=== PATIENT | female | born 1985 | race Caucasian/White ===

== ENCOUNTER 2022-11-23 09:49 | Emergency (ER) | payer OTHER, SELFPAY ==
--- NOTE | ~2022-11-23 | US_ITS ---
Pelvic ultrasound. Clinical History: First trimester , ectopic Technique: Realtime transabdominal and transvaginal scanning of the pelvis was performed. Color flow Doppler and Doppler spectral analysis were performed. Findings: The uterus is anteverted. The endometrial stripe has a thickness of up to 15 mm. No intrau terine gestational sac identified. Small anterior intramural fibroid measures 1.[address] ter. The right ovary measures 1.7 x 1.3 x 2.8 cm. No significant right ovarian or adnexal mass is seen. The left ovary measures 2.9 x 2.0 x 2.5 cm. No significant left ovarian or adnexal mass is seen. There is no evidence of free fluid in the cul de sac. Impression: Positive test without intrauterine gestation. Prominent endometrial stripe is suggestive of spontaneous , however early normal or nonvisualized ectopic remains in t he differential diagnosis. Correlate clinically. Continued follow up with serial beta hCG, and repeat ultrasound as warranted, is advised. Small uterine fibroid, as above. Reviewed, dictated and finalized at location M. O GAME DESIGNER Impression: Positive test without intrauterine gestation. Prominent endometrial s tripe is suggestive of spontaneous , however early normal or nonvisualized ectopic remains in the differential diagnosis. Correlat e clinically. Continued follow up with serial beta hCG, and repeat ultrasound a s warranted, is advised. Small uterine fibroid, as above.
[2022-11-23 09:56] VITALS: BP 119/74; PULSE 83; RESP 14; TEMP 36.4; O2SAT 100
[2022-11-23 10:14] LABS: Basophils Percent Auto 0.3 % (0.2-1.2); Eosinophils Absolute Auto 0.5 K/mm3 (0-0.3); Eosinophils Percent Auto 4.4 % (0-4.4); Hematocrit 38.2 % (37.0-47.0); Hemoglobin 13.1 g/dL (12.0-15.0); Immature Granulocyte Absolute 0.02 K/mm3 (0.00-0.031); Immature Granulocyte Percent A 0.2 % (0-0.5); Lymphocytes Absolute Auto 1.61 K/mm3 (0.9-3.2); Lymphocytes Percent Auto 15.7 % (18.3-44.2); Mean Corpuscular HGB Conc 34.3 g/dl (32-36); Mean Corpuscular Volume 84.5 fl (80-100); Monocytes Absolute Auto 0.5 K/mm3 (0.1-0.6); Monocytes Percent Auto 4.7 % (2.6-8.5); Neutrophils Absolute Auto 7.7 K/mm3 (1.3-6.7); Neutrophils Percent Auto 74.7 % (45.5-73.1); Platelet Count Result 296 k/mm3 (150-375); Red Blood Count 4.52 M/mm3 (4.2-5.4); Red Cell Distribution Width 13.2 % (11.5-14.5); White Blood Count 10.3 K/mm3 (4.5-10.0)
--- NOTE | 2022-11-23 11:08 | ED.FEMALEGU ---
HPI - Female Genitourinary General Chief complaint: Vaginal Bleeding Stated complaint: 11 weeks with bleeding that began today Time Seen by Provider: 11/23/22 11:08 Source: patient and family History of Present Illness HPI Narrative: 37 years old white female, about 11 weeks , never been seen by ECHO VASC TECH so far. Presents with severe lower abdominal cramps, vaginal bleeding with blood clots started 2 hours prior to arrival to the emergency room. Patient is 2, para 1 0. She does not smoke or drink or uses drugs. Related Data Allergies Allergy/AdvReac Type Severity Reaction Status Date / Time Penicillins Allergy Severe Swelling Verified 11/23/22 09:50 phenylephrine Allergy Mild INCREASED Verified 11/23/22 09:50 HEART RATE pseudoephedrine Allergy Mild INCREASE Verified 11/23/22 09:50 HEART RATE banana Allergy Unknown N/V RASH Verified 11/23/22 09:50 Review of Systems Review of Systems: All systems reviewed & are unremarkable except as noted in HPI and below Exam Narrative: General appearance: Well-developed, well-nourished Skin: Normal color Head: Normocephalic, nontraumatic Eyes: Clear conjunctiva ENT: Oropharynx normal, ears normal, nose normal Neck: Supple, nontender Chest and respiratory: Airway patent, no respiratory distress, no accessory muscle use Heart: Regular rate/rhythm Abdomen: Soft, mild diffuse tenderness, suprapubic area, no guarding or rebound, no organomegaly, quiet bowel sounds Vascular: Normal peripheral pulses, normal capillary refill. Musculoskeletal: Normal range of motion, nontender back Neurologic: Alert and oriented ?3, QUALITY IMPROVEMENT ENGINEER is normal as tested, no gross motor deficit : Speculum Exam - Vagina: normal appearance of the vagina and vaginal bleeding (Moderate vaginal bleeding, positive conception products, slight blood clots) Speculum Exam - Cervix: normal appearance of the cervix (Conception products in the os, I was able to pull it out) Course Consultations Consultation #1: Dr. Simon Zelaya Date: 11/23/22 Time: 12:55 Vital Signs Vital signs: Vital Signs Temperature 36.4 C 11/23/22 09:56 Pulse Rate 83 11/23/22 09:56 Respiratory Rate 14 11/23/22 09:56 Blood Pressure 119/74 11/23/22 09:56 Pulse Oximetry 100 11/23/22 09:56 Oxygen Delivery Room Air 11/23/22 09:56 Temperature 36.4 C 11/23/22 09:56 Pulse Rate 83 11/23/22 09:56 Respiratory Rate 14 11/23/22 09:56 Blood Pressure 119/74 11/23/22 09:56 Pulse Oximetry 100 11/23/22 09:56 Oxygen Delivery Room Air 11/23/22 09:56 MDM - Female Genitourinary Differential Diagnosis Differential diagnosis: Likely dysmenorrhea (Miscarriage, incomplete , complete ) Lab Data 11/23/22 10:05 Labs: Lab Results 11/23/22 11/23/22 11/23/22 Range/Units 10:05 10:05 10:05 WBC 10.3 H (4.5-10.0) K/mm3 RBC 4.52 (4.2-5.4) M/mm3 Hgb 13.1 (12.0-15.0) g/dL Hct 38.2 (37.0-47.0) % MCV 84.5 (80-100) fl MCH 29.0 (26-34) pg MCHC 34.3 (32-36) g/dl RDW 13.2 (11.5-14.5) % Plt Count 296 (150-375) k/mm3 MPV 9.0 (7.4-10.4) fl Immature Gran % (Auto) 0.2 (0-0.5) % Neut % (Auto) 74.7 H (45.5-73.1) % Lymph % (Auto) 15.7 L (18.3-44.2) % [place] % (Auto) 4.7 (2.6-8.5) % Eos % (Auto) 4.4 (0-4.4) % Baso % (Auto) 0.3 (0.2-1.2) % Lymph # (Auto) 1.61 (0.9-3.2) K/mm3 [place] # (Auto) 0.5 (0.1-0.6) K/mm3 Eos # (Auto) 0.5 H (0-0.3) K/mm3 Baso # (Auto) 0.0 (0.0-0.1) K/mm3 Abs Immat Gran (auto) 0.02 (0.00-0.031) K/mm3 Absolute Neuts (auto) 7.7 H (1.3-6.7) K/mm3 Absolute Nucleated RBC 0.0
--- NOTE | 2022-11-23 11:28 | PC.NURSE ---
pelvic exam performed with provider at this time
--- NOTE | 2022-11-23 12:54 | PC.NURSE ---
[facility]
--- NOTE | 2022-11-23 13:39 | PC.NURSE ---
SHARE information given. discharge given to patient and family
== END 2022-11-23 13:40 | disposition home or self-care (01) ==
PROVIDERS: Emergency Provider Emergency Medicine; PCP Family Medicine Adolescent Medicine
DX: O03.9 Complete or unspecified spontaneous abortion without complication (principal); D25.9 Leiomyoma of uterus, unspecified
CPT/HCPCS: 36415; 76801; 76817; 84702; 85025; 85461; 86850; 86900; 86901; 88305; 99284

== ENCOUNTER 2022-11-29 11:23 | Outpatient (CLI) | payer OTHER, SELFPAY ==
--- NOTE | ~2022-11-29 | US_ITS ---
EXAMINATION: US OB <= 14 weeks fetus DATE: 11/29/2022 12:54 INDICATION: Spontaneous . TECHNIQUE: Real-time transabdominal and transvaginal pelvic ultrasound was performed. COMPARISON: Ultrasound 11/23/2022 FINDINGS: TRANSABDOMINAL ULTRASOUND: The uterus measures 9.9 x 5.5 x 6.7 cm. TRANSVAGINAL ULTRASOUND: There is no visible intrauterine gestational sac. The endometrial complex me asures 8 mm in thickness. The right ovary measures 3.1 x 1.7 x 1.9 cm. The left ovary measures 3.7 x 2.2 x 2.2 cm. There is normal vascular flow in the ovaries. There is no free fluid in the pelvis. IMPRESSION: 1. No visible intrauterine gestational sac, which may be normal in early . Spontaneous abor tion and ectopic are not excluded. Serial beta hCGs are recommended. Reviewed, dictated and finalized at location A. REP IMPRESSION: 1. No visible intrauterine gestational sac, which may be normal in early pregn larry. Spontaneous and ectopic are not excluded. Serial beta hCGs are recommended.
== END 2022-11-29 11:24 | disposition home or self-care (01) ==
PROVIDERS: PCP Family Medicine Adolescent Medicine; Visit Provider Obstetrics & Gynecology
DX: O20.0 Threatened abortion (principal)
CPT/HCPCS: 76801

== ENCOUNTER 2023-11-14 11:38 | Outpatient (RCR) | payer OTHER, SELFPAY ==
--- NOTE | ~2023-11-14 | US_ITS ---
EXAMINATION: US OB BPP wo non-stress DATE: 11/14/2023 13:04 INDICATION: Decreased movement. Third trimester. TECHNIQUE: Real-time pelvic ultrasound was performed. COMPARISON: Ultrasound 11/29/2022 FINDINGS: There is a single living fetus in vertex presentation. The placenta is anterior. There is a 2.6 cm u terine fibroid. heart rate is 143 beats per minute (bpm). The deepest vertical pocket is 5.6 cm . Biophysical profile performed by the technologist: breathing (30 sec sustained breathing in 30 minutes): 2 out of 2 movement (3 gross body movements in 30 minutes): 2 out of 2 tone (one episode of vuhkkbt-ftyttiabw-mpucnoy limb movement): 2 out of 2 Amniotic fluid pocket (2 cm): 2 out of 2 Total score: 8 out of 8 IMPRESSION: 1. Single living fetus in vertex presentation. 2. Biophysical profile 8 out of 8. 3. Uterine fibroid. Reviewed, dictated and finalized at location A. ER PURSE SEINE
--- NOTE | 2023-11-14 14:49 | PM.OBTRLD ---
OB - Triage/Final Diagnosis Visit Information Date of evaluation: 11/14/23 Reason for evaluation: decreased movement Comments/Additional reasons for admission: I have assessed the risk for this patient, Cielo Gerson Westonsally, and determined that she would benefit from observation care.
== END 2024-02-12 23:59 | disposition home or self-care (01) ==
LOC: ANHOBOP 11:38
PROVIDERS: PCP Family Medicine Adolescent Medicine; Visit Provider Obstetrics & Gynecology
DX: O36.8130 Decreased fetal movements, third trimester, not applicable or unspecified (principal); Z3A.37 37 weeks gestation of pregnancy
CPT/HCPCS: 59025; 76819

== ENCOUNTER 2023-12-03 05:10 | Inpatient (IN) | payer OTHER, SELFPAY ==
[2023-12-03] VITALS (173 sets, daily range): BP systolic 89–142; BP diastolic 47–105; PULSE 52–109; RESP 18; TEMP 36.3–37.1; O2SAT 93–100; BMI 31.1
--- NOTE | 2023-12-03 05:36 | LDADM ---
This patient, Cielo Bella, was admitted to Labor/Delivery/Recovery 106 on 12/03/23 at 05:10. Plans for labor, pain management and were discussed with patient. Patient/family oriented to hospital policies and general routines including ID bracelet, bed and alarms, visiting hours, pain management, procedures, bathroom and other care routines, personal items, smoking policy, room service/diet and guest tray routines, security routines, and visiting hours. Patient/Family are encouraged to report perceived risks to care and to ask questions if they do not understand what they are told or what they should do. See OBIX for further documentation.
[2023-12-03 05:52] LABS: Basophils Percent Auto 0.3 % (0.2-1.2); Eosinophils Absolute Auto 0.3 K/mm3 (0-0.3); Eosinophils Percent Auto 2.4 % (0-4.4); Immature Granulocyte Percent A 0.9 % (0-0.5); Lymphocytes Absolute Auto 1.45 K/mm3 (0.9-3.2); Lymphocytes Percent Auto 13.4 % (18.3-44.2); Mean Corpuscular HGB Conc 32.3 g/dl (32-36); Mean Corpuscular Hemoglobin 27.4 pg (26-34); Mean Corpuscular Volume 84.9 fl (80-100); Mean Platelet Volume 9.7 fl (7.4-10.4); Monocytes Absolute Auto 0.7 K/mm3 (0.1-0.6); Monocytes Percent Auto 6.5 % (2.6-8.5); Neutrophils Absolute Auto 8.3 K/mm3 (1.3-6.7); Neutrophils Percent Auto 76.5 % (45.5-73.1); Platelet Count Result 287 k/mm3 (150-375); Red Blood Count 3.65 M/mm3 (4.2-5.4); Red Cell Distribution Width 14.6 % (11.5-14.5); White Blood Count 10.9 K/mm3 (4.5-10.0)
[2023-12-03] MEDS: LACTATED RINGERS 1,000 ML 125 ML IV CONT ×3 (06:20→13:22)
[2023-12-03] MEDS: OXYTOCIN 30 UNITS/NS 500 ML 30 UNITS/500 ML BAG IV CONT (06:44)
--- NOTE | 2023-12-03 06:46 | PM.IMHP ---
H&P: HPI History of Present Illness Date/Time: 12/03/23 06:46 Chief Complaint: Induction of labor at term Narrative: this is a 38-year-old 2 para 0101 whose EDC is 12/02/2023, confirmed by 12 week ultrasound who presents at 40 weeks gestation for induction of labor. She had a previous pre term labor and delivery. This has been uncomplicated with negative group B strep PMFSH Family History Family History Father Diabetes mellitus Hypertension Mother Hypertension Grandparent Hypertension Social History Social History Years smoked: 10 Smoking status: Former smoker Tobacco type: cigarettes Substance use: never Do You Feel Safe in your Home?: Yes Lack of Transportation: No Lack of Food: Never True Current Housing: I Have Housing Concerned About Future Housing: No Difficulty Paying Gas/Electric Bills: No Difficulty Paying for Meds: No Currently Unemployed: No Education: Associate Degree Difficulty w/ Childcare or Family Care: No Spiritual care concerns: No Meds Home Medications and Allergies Home Medications Medication Instructions Recorded Confirmed Type [id number] 27 mg-folic 1 pkg PO DAILY 05/09/23 11/01/23 History acid 800 mcg-dha 200 mg-lut.oral pack labetalol 100 mg tablet 50 mg PO Q12H #90 tabs 08/26/23 11/01/23 Rx ferrous sulfate 325 mg (65 mg 65 mg PO DAILY 11/01/23 11/01/23 History iron) tablet Allergies Allergy/AdvReac Type Severity Reaction Status Date / Time Penicillins Allergy Severe Swelling Verified 05/09/23 10:33 phenylephrine Allergy Mild INCREASED Verified 05/09/23 10:33 HEART RATE pseudoephedrine Allergy Mild INCREASE Verified 05/09/23 10:33 HEART RATE banana Allergy Unknown N/V RASH Verified 05/09/23 10:33 amoxicillin Allergy Swelling Verified 11/01/23 13:35 camphor [From Vicks Vaporub] Allergy Swelling Verified 05/09/23 10:33 eucalyptus Allergy Anxiety Verified 05/09/23 10:33 menthol [From Vicks Vaporub] Allergy Swelling Verified 05/09/23 10:33 petrolatum,white Allergy Swelling Verified 05/09/23 10:33 [From Vicks Vaporub] turpentine oil Allergy Swelling Verified 05/09/23 10:33 [From Vicks Vaporub] Vital Signs Vital Signs - 24 hr 12/03/23 05:30 12/03/23 05:32 12/03/23 06:01 Pulse Rate 103 H 105 H 89 Blood Pressure 121/83 114/80 108/61 Oxygen Delivery 12/03/23 06:31 12/03/23 05:35 Pulse Rate 79 Blood Pressure 121/66 Oxygen Delivery Room Air Exam Const: General: cooperative, healthy appearing and comfortable Nutritional Appearance: average body habitus Orientation/consciousness: oriented to person, oriented to place and oriented to time HENMT: Head: normal to inspection Resp: Effort & Inspection: normal respiratory effort Cardio: Rate: regular rate Rhythm: regular rhythm Heart sounds: S1 normal heart sound present and S2 normal heart sound present GI: Inspection: normal to inspection ( soft gravid uterus) : External Female Exam: normal external appearance Speculum Exam - Vagina: normal appearance of the vagina Speculum Exam - Cervix: normal appearance of the cervix ( cervix 1cm 50% effaced -2. Unable to AROM. FHTs reassuring) H&P: Results Labs Labs: Short CBC 12/03/23 Range/Units 05:20 WBC 10.9 H (4.5-10.0) K/mm3 Hgb 10.0 L D (12.0-15.0) g/dL Hct 31.0 L (37.0-47.0) % Plt Count 287 (150-375) k/mm3 Assessment and Plan Assessment and plan (1) Term : Code(s): Z34.90 - Encounter for supervision of normal , unspecified, unspecified trimester Status: Acute Plan medical induction of labor. Spontaneous vaginal delivery expected. She has an epidural candidate if she chooses
--- NOTE | 2023-12-03 09:44 | WPDANESEPP ---
Anes - Eval Pre Procedure Procedure: Labor epidural Date/Time: 12/03/23 09:44 Surgeon: Simon Zelaya Preop Diagnosis: Pain during labor Pre Op Diagnosis: IOL Patient Data Age: 38 Gender: F Height: 1.65 m Weight: 85 kg Last Vital Signs Temp 36.6 C 12/03/23 09:09 Pulse 82 12/03/23 09:30 BP 126/78 12/03/23 09:30 O2 Del Method Room Air 12/03/23 05:35 Allergies Allergy/AdvReac Type Severity Reaction Status Date / Time Penicillins Allergy Severe Swelling Verified 05/09/23 10:33 phenylephrine Allergy Mild INCREASED Verified 05/09/23 10:33 HEART RATE pseudoephedrine Allergy Mild INCREASE Verified 05/09/23 10:33 HEART RATE banana Allergy Unknown N/V RASH Verified 05/09/23 10:33 amoxicillin Allergy Swelling Verified 11/01/23 13:35 camphor [From Vicks Vaporub] Allergy Swelling Verified 05/09/23 10:33 eucalyptus Allergy Anxiety Verified 05/09/23 10:33 menthol [From Vicks Vaporub] Allergy Swelling Verified 05/09/23 10:33 petrolatum,white Allergy Swelling Verified 05/09/23 10:33 [From Vicks Vaporub] turpentine oil Allergy Swelling Verified 05/09/23 10:33 [From Vicks Vaporub] Home Medications Medication Instructions Recorded Confirmed Type [id number] 27 mg-folic 1 pkg PO DAILY 05/09/23 11/01/23 History acid 800 mcg-dha 200 mg-lut.oral pack labetalol 100 mg tablet 50 mg PO Q12H #90 tabs 08/26/23 11/01/23 Rx ferrous sulfate 325 mg (65 mg 65 mg PO DAILY 11/01/23 11/01/23 History iron) tablet Laboratory Tests 12/03/23 05:20 WBC 10.9 H K/mm3 (4.5-10.0) RBC 3.65 L M/mm3 (4.2-5.4) Hgb 10.0 L D g/dL (12.0-15.0) Hct 31.0 L % (37.0-47.0) MCV 84.9 fl (80-100) MCH 27.4 pg (26-34) MCHC 32.3 g/dl (32-36) RDW 14.6 H % (11.5-14.5) Plt Count 287 k/mm3 (150-375) MPV 9.7 fl (7.4-10.4) Immature Gran % (Auto) 0.9 H % (0-0.5) Neut % (Auto) 76.5 H % (45.5-73.1) Lymph % (Auto) 13.4 L % (18.3-44.2) [place] % (Auto) 6.5 % (2.6-8.5) Eos % (Auto) 2.4 % (0-4.4) Baso % (Auto) 0.3 % (0.2-1.2) Lymph # (Auto) 1.45 K/mm3 (0.9-3.2) [place] # (Auto) 0.7 H K/mm3 (0.1-0.6) Eos # (Auto) 0.3 K/mm3 (0-0.3) Baso # (Auto) 0.0 K/mm3 (0.0-0.1) Abs Immat Gran (auto) 0.10 H K/mm3 (0.00-0.031) Absolute Neuts (auto) 8.3 H K/mm3 (1.3-6.7) Absolute Nucleated RBC 0.0 K/mm3 (0.0-0.012) Nucleated RBC % 0.0 % (0.0-0.2) RPR Pending Blood Type A Positive Antibody Screen Negative Patient hx anesthesia problems: none Family hx anesthesia problems: none Results Review: All pre-operative results and documents have been reviewed as part of the pre-operative evaluation. [facility] Family History Family History Father Diabetes mellitus Hypertension Mother Hypertension Grandparent Hypertension Social History Social History Years smoked: 10 Smoking status: Former smoker Tobacco type: cigarettes Substance use: never Do You Feel Safe in your Home?: Yes Lack of Transportation: No Lack of Food: Never True Current Housing: I Have Housing Concerned About Future Housing: No Difficulty Paying Gas/Electric Bills: No Difficulty Paying for Meds: No Currently Unemployed: No Education: Associate Degree Difficulty w/ Childcare or Family Care: No Spiritual care concerns: No Exam Day of Procedure 12/03/23 09:44
--- NOTE | 2023-12-03 11:17 | PM.OBPNLAB ---
Pain Control Date/time seen: 12/03/23 11:17 Pain control: tolerating well and epidural Pelvic Exam Dilation (cm): 4 Effacement (%): 90 station: 0 Amniotic membrane status: Leaking
[2023-12-03] MEDS: SODIUM CHLORIDE 0.9% IV 300 ML 600 ML I-UTERINE (11:54)
[2023-12-03 15:50] LABS: Rapid Plasma Reagin Non-Reactive (NonReactive)
--- NOTE | 2023-12-03 15:55 | PM.OBPRVD ---
OB - Vaginal Delivery Note Procedure Delivery date: 12/03/23 Induction method: AROM Delivery augmentation: Pitocin Delivery monitor: External FHT and Internal Uterine Route of delivery: Episiotomy description: None Laceration Description: None Quantitative Blood Loss (ml): 61 Anesthesia type: Epidural Disposition: Floor Complications: No immediate complications Baby Date of : 12/03/23 Time of : 15:47 Weeks of gestation at delivery: 39 presentation: vertex position: Right Occiput Anterior Placenta delivery description: Spontaneous Cord Vessel Description: 3 Vessels score one minute: 8 score five minutes: 9
--- NOTE | 2023-12-03 15:57 | PM.DS ---
DS: Admitting Diagnosis Discharge Date 12/04/2023 Admitting Diagnosis Term DS: Discharge Diagnosis Discharge Diagnosis (1) Term : Code(s): Z34.90 - Encounter for supervision of normal , unspecified, unspecified trimester Status: Acute DS: Summary Hospital Course Reason for hospitalization: patient was admitted for induction of labor at term Hospital Course: patient underwent spontaneous vaginal delivery on 12/03/2023. Her hospital course unremarkable. She remained afebrile. She was up, voiding the delivery, eating regular diet, ambulating, generally without complaints. Time Spent with Patient Time attestation: Total time spent providing and/or coordinating discharge services: Exam Const: General: cooperative, healthy appearing and comfortable Nutritional Appearance: average body habitus Orientation/consciousness: oriented to person, oriented to place and oriented to time HENMT: Head: normal to inspection Resp: Effort & Inspection: normal respiratory effort Cardio: Rate: regular rate Rhythm: regular rhythm Heart sounds: S1 normal heart sound present and S2 normal heart sound present GI: Inspection: normal to inspection ( Fundus firm below the umbilicus) DS: Data Data Completed and Pending Labs on day of discharge: Labs from last 24 hours 12/03/23 05:20 WBC 10.9 H RBC 3.65 L Hgb 10.0 L D Hct 31.0 L MCV 84.9 MCH 27.4 MCHC 32.3 RDW 14.6 H Plt Count 287 MPV 9.7 Immature Gran % (Auto) 0.9 H Neut % (Auto) 76.5 H Lymph % (Auto) 13.4 L [place] % (Auto) 6.5 Eos % (Auto) 2.4 Baso % (Auto) 0.3 Lymph # (Auto) 1.45 [place] # (Auto) 0.7 H Eos # (Auto) 0.3 Baso # (Auto) 0.0 Abs Immat Gran (auto) 0.10 H Absolute Neuts (auto) 8.3 H Absolute Nucleated RBC 0.0 Nucleated RBC % 0.0 RPR Non-reactive Blood Type A Positive Antibody Screen Negative Discharge Plan Discharge Attending physician on discharge: Jose F Liu Discharging Clinician: Jose F Liu Patient Disposition: Home, Self-Care Activity: may shower and no straining Diet: heart healthy Wound Care Instructions: follow printed instructions Patient Instructions: Antibiotic Form Stand Alone Forms: General Discharge Information Follow-up/Referrals: Jose F Liu MD [Physician] - Discharge Medications: Continued PNV [id number]-dha-lutein 27 mg iron-800 mcg-200 mg combo pack 1 pkg PO DAILY ferrous sulfate 325 mg (65 mg iron) Tablet 65 mg PO DAILY labetalol 100 mg tablet 50 mg PO Q12H Qty: 90 2RF Date of admission: 12/03/23 05:10 Primary Care Provider: Yogesh Schrader Admitting Provider: Jose F Liu Attending physician on admission: Jose F Liu Condition: Stable
[2023-12-03] MEDS: OXYTOCIN 30 UNITS/NS 500 ML 30 UNITS/500 ML BAG 125 UNITS IV CONT (16:12)
--- NOTE | 2023-12-03 19:05 | OBPPTRN ---
Patient transferred to post room #290 via wheelchair. Support person present. Oriented to unit, room, information board, rooming in, admission packet and security measures. Patient verbalizes understanding.
[2023-12-04 01:20] VITALS: BP 103/61; PULSE 99; RESP 18; TEMP 36.8; O2SAT 99
[2023-12-04 03:18] LABS: Hematocrit 30.8 % (37.0-47.0); Hemoglobin 9.9 g/dL (12.0-15.0)
[2023-12-04 03:24] VITALS: BP 113/71; PULSE 96; RESP 18; TEMP 36.6; O2SAT 99
--- NOTE | 2023-12-04 06:33 | PM.OBPNVD ---
OB - PN: Subj Subjective Date/time seen: 12/04/23 06:33 Patient comments: no complaints and pain well controlled baby status: doing well and nursing well OB - PN: Obj Data Labs 12/04/23 02:57 Labs: Laboratory Results - last 24 hr 12/03/23 12/04/23 05:20 02:57 Hgb 9.9 L Hct 30.8 L RPR Non-reactive Antibody Screen Negative OB - PN A/P Plan day: 1 Plan: routine care, discharge home and follow up 6 weeks Time Spent With Patient Time: Total time spent is greater than 50% in coordination of care (as documented) at patient's floor/unit and/or counseling patient: Time with patient: less than 15 minutes Exam Const: General: cooperative, healthy appearing and comfortable Nutritional Appearance: average body habitus Orientation/consciousness: oriented to person, oriented to place and oriented to time HENMT: Head: normal to inspection Resp: Effort & Inspection: normal respiratory effort GI: Inspection: normal to inspection (fundus firm)
[2023-12-04 07:19] VITALS: BP 124/70; PULSE 91; RESP 16; TEMP 36.4; O2SAT 98
[2023-12-04] MEDS: POLYSACCHARIDE IRON COMPLEX 150 MG CAPSULE PO (07:21)
[2023-12-04] MEDS: MULTIVIT/MIN/PREN/FOL AC/IRON TABLET 1 TAB PO (07:21)
[2023-12-04] MEDS: DOCUSATE SODIUM 100 MG CAPSULE PO (07:23)
[2023-12-04] MEDS: IBUPROFEN 600 MG TABLET PO (07:23)
--- NOTE | 2023-12-04 07:53 | PC.NURSE ---
On 12/04/23, the student, Johnna Thorne, provided care and completed [facility] documentation on this patient. I have reviewed the student's documentation and agree with the findings.
--- NOTE | 2023-12-04 08:02 | WPDANLDPN2 ---
Anes-Prog Note L&D Date/Time: 12/04/23 08:02 Comfortable throughout: labor and delivery Neuraxial method: epidural Epidural/Spinal procedure site: clean & non-tender Neuro status: Neuro function grossly intact. Cardiovascular status: normal Respiratory status: normal Airway patency: baseline Mental status: baseline Post-Op hydration status: normal Vital Signs: Last Vital Signs Temp 36.4 C L 12/04/23 07:19 Pulse 91 12/04/23 07:19 Resp 16 12/04/23 07:19 BP 124/70 12/04/23 07:19 Pulse Ox 98 12/04/23 07:19 O2 Del Method Room Air 12/03/23 05:35 Pain score (VAS): 2/10 I/O: Intake & Output 12/03/23 12/04/23 12/04/23 23:59 07:59 15:59 Output Total 50 Balance -50 Post-procedural complaints: none Patient feedback: Patient satisfied with anesthetic care.
--- NOTE | 2023-12-04 09:24 | PC.NURSE ---
0830 - 0915 Introductions were made, then consulted with patient to assess needs related to . Mother led the conversation with her?plans to feed?her , the?experience so far and states breastfed better last night but today is sleepy. Mother is demonstrating cnmy-zl-jsrw with infant undressed to the diaper and placed upright on her chest. Encouraged stimulation with massage touch, changing positions to encourage wakefulness, how to watch for early feeding cues, responsive feeding, feeding on demand (aiming for 8-12 times in 24 hours, about every 2-3 hours), milk production,hand expression, building/maintaining a milk supply, duration of feeding, signs of adequate intake/output and how to record on the feeding sheet. Mother works well with her infant with encouragement and education. is gaggy and spitty showing feeding cues but not putting efforts towards latching. We practiced the skill of hand expression and finger fed drops of colostrum. Infant remained sleepy and reluctant at this time. Blood sugar was obtained as the last breastfeed was 6 hours ago and resulted at 63mg/dl. Infant remains foxd-cu-cfwl and mother was encouraged to eat her breakfast, stimulate , hand express and give drops of colostrum inbetween bites when she desires to do so. We made a plan to give infant 1-2 hours and attempt again. Discussed with mother the first 24 hour behaviors, 2nd 24 hour behavior, and having support during that time if she still desires to go home. Mother states she has a fiancee, mother, [place]'s mother and a ALL[place]ON that is an IBCLC in [place] that she can use as a resource and support. We will work together today to get patient to a confident capable level of . Mother voiced understanding of skin to skin, stimulating with massage touch, responsive feedings, hand expressed colostrum, talking to to encourage if it has been 2 -2.5 hours since the start of the last , to call if does not latch, difficulty waking to breastfeed, or if there is discomfort with . Resources used for education were facilitated with the visual educational handouts and tool. Inpatient/outpatient resources provided with feeding sheet, name written on the communication board, and the mom/baby guide. Mother voiced understanding of information, demonstrated learning and will call if there is a request for assistance. Reported to the Primary RN.
--- NOTE | 2023-12-04 11:30 | PC.NURSE ---
1122 -1125 Purposefully rounded to assess for needs. Mother attempted to breastfeed her infant at 1030 unsuccessfully with spitting up and going back to sleep. is swaddled in the bassinet. Visitors are present and patient states her brother is on his way to see the baby. Mother plans to not do anything at this point until after her brother comes up. Mother was encouraged to place infant [id number] and call for assistance with feeding. Reported to the Primary RN.
[2023-12-04 12:00] VITALS: BP 114/73; PULSE 88; RESP 16; TEMP 36.1; O2SAT 98
--- NOTE | 2023-12-04 12:55 | PC.NURSE ---
[id number] Purposefully rounded to assess for needs. Visitors are present in the room with ALLYSON on facetime, two student nurses present getting VS on mother, infant is crying, and excitement is felt in the room. RN requested visitors step out for a few minutes and reset the room. was placed [id number]. Mother is tearful related to the mention of possibly supplementing of formula earlier by the Primary RN. Mother was reassured of her abilities the benefits of skin to skin (demonstrating unwrapping and placing upright on her chest), stimulating with massage touch, changing positions to encourage wakefulness, how to watch for early feeding cues, responsive feeding, feeding on demand (aiming for 8-12 times in 24 hours, about every 2-3 hours), milk production, building/maintaining a milk supply, duration of feeding, and how the feedings typically go the first 24 hours. We reviewed what to expect the 2nd 24 hours related to her desire of wanting to go home at 24 hours with being a first time mother (suggested earlier today to consider staying past 24 hours) and the not since 309. Mother works well with her with encouragement, education, and once the dyad was calm with feeding cues visualized we reviewed positioning and ear, shoulder, hip alignment, supporting the breast to facilitate a deep latch, asymmetrical latch (off-center), leading with the chin with a big, open, wide gape and body close to mother. Infant latched optimally to the left, then the right breast in football position. Education given to the parents of how to visualize the suckling (with good rocking jaw motion), swallows (dropping of the lower jaw) and how to listen for drinking at the breast (the ka sound) which infant demonstrated on both breast. Infant was able to maintain latch without pain to mother protecting the nipple with optimal positioning, latching support a deep latch, and self detached after the left side. Reviewed comfort measures of healing with a warm, wet washcloth to rinse breast, then leave open to air-dry, switching positions, and alternating breast, good handwashing when or touching the breast/nipples to prevent infection. Mother voiced understanding of skin to skin, stimulating with massage touch, responsive feedings, hand expressed colostrum, to encourage if it has been 2 -2.5 hours since the start of the last , to call if does not latch, difficulty waking infant, or if there is discomfort with . 13mls of a wet diaper was changed and visitors came back to visit. Inpatient/outpatient resources provided with feeding sheet, name written on the communication board, the mom/baby guide, and mother's ALLYSON is an IBCLC at [facility]. Parents voiced understanding of information, demonstrated learning and will call if there is a request for assistance. Reported to the Primary RN. and how the feeding typically goes the first 24 hours versus the 2nd 24 hours, her desire of wanting to go home at 24 hours (suggested earlier today to consider staying past 24 hours) with infant not since 309. After mother expressed tears and frustration along with infant calming down we began initiated the consult.
--- NOTE | 2023-12-04 15:37 | PC.NURSE ---
[id number] Mother verbalizes she is able to independently latch with appropriate positioning and alignment. She denies any nipple discomfort and is responsively . Mother has independently latched her twice since the consult. One feeding being 20 min, then a 10 min feeding. Infant is currently meeting outcomes for weight, output, jaundice, blood sugar and feeding frequencies of 8-12 times in 24 hours. Mother states she is confident to continue effectively her infant at home, when to call for assistance, denies any additional assistance or education at this time. Reinforced responsive watching for feeding cues, the different methods of stimulating to breastfeed 1-3 hours after the start of the last feeding, resources, preventing infection, and when to call a provider using the resource of the mom and baby guide with a plan to follow up with LC tomorrow after the follow up appt. Mother voiced understanding of the education shared.
[2023-12-05 10:24] VITALS: BP 113/74; PULSE 87; RESP 18; TEMP 36.6; O2SAT 99
== END 2023-12-04 17:42 | disposition home or self-care (01) | DRG 560 ==
LOC: ANHLDR 15:58 → ANHOB2 19:10
PROVIDERS: Admitting Provider Obstetrics & Gynecology; PCP Family Medicine Adolescent Medicine; Visit Provider Obstetrics & Gynecology
DX: O69.82X0 Labor and delivery complicated by other cord entanglement, without compression, not applicable or unspecified (principal); Z3A.40 40 weeks gestation of pregnancy; Z37.0 Single live birth; Z87.891 Personal history of nicotine dependence; Z88.0 Allergy status to penicillin
CPT/HCPCS: 36415; 85014; 85018; 85025; 86592; 86850; 86900; 86901; A9270; J2590; J2795; J7030; J7120

== ENCOUNTER 2024-02-13 15:43 | Outpatient (CLI) | payer OTHER, SELFPAY | END 2024-02-13 15:44 | disposition home or self-care (01) | LOC: ANHLAB 15:45 | PROVIDERS: PCP Family Medicine Adolescent Medicine; Visit Provider Nurse Practitioner Family | DX: J02.9 Acute pharyngitis, unspecified (principal) | CPT/HCPCS: 87081 ==